=== PATIENT | female | born 1970 | race Caucasian/White ===

== ENCOUNTER → 2016-10-01 | Outpatient (CLI) | payer OTHER ==
[~2016-10-01] MED LIST: LORA-741 PO; NXM/40 PO; PARO1TAB29 PO
[2016-10-01 12:53] LABS: BASO % 0.8 %; BASO ABS # 0.04 K/uL (0-0.2); COMPLETE YES; EOS % 1.7 %; HEMATOCRIT 37.7 % (37-47); IG% 0.2 %; LYMPH % 25.7 %; LYMPH ABS # 1.36 K/uL (1.2-3.4); MEAN CORPUSCULAR HEMOGLOBIN 30.7 pg (25-34); MEAN CORPUSCULAR HGB CONC 32.6 g/dl (32-36); MEAN PLATELET VOLUME 9.9 fL (7.4-10.4); MONO % 17.8 %; NEUT % 53.8 %; PLATELET COUNT 275 K/uL (130-400); RED BLOOD COUNT 4.01 M/uL (4.2-5.4); WHITE BLOOD COUNT 5.29 K/uL (4.8-10.8)
[2016-10-01 13:51] LABS: ALT/SGPT 19 U/L (12-78); AST/SGOT 13 U/L (15-37); BLOOD UREA NITROGEN 15 mg/dl (7-18); BUN/CREATININE RATIO 16.3 (10-20); CARBON DIOXIDE 27 mmol/L (21-32); CHLORIDE 105 mmol/L (98-107); CREATININE 0.95 mg/dl (0.60-1.20); GLUCOSE 80 mg/dl (70-99); POTASSIUM 4.2 mmol/L (3.5-5.1); SODIUM 139 mmol/L (136-145)
[2016-10-01 13:53] LABS: ALB/GLOB RATIO 0.9 (0.9-2); ALKALINE PHOSPHATASE 78 U/L (45-117)
[2016-10-01 13:58] LABS: CHOLESTEROL/HDL RATIO 2.2; THYROID STIMULATING HORMONE 1.82 uIu/ml (0.300-4.500)
== END | disposition home or self-care (01) ==
LOC: C.LABPBG 11:07
PROVIDERS: ATTEND Internal Medicine
DX: F10.10 Alcohol abuse, uncomplicated (principal); K21.9 Gastro-esophageal reflux disease without esophagitis

== ENCOUNTER 2017-10-04 12:03 | Emergency (ER) | payer OTHER ==
[2017-10-04 12:16] VITALS: TEMP 36.6; Ht 157.5 cm
--- NOTE | 2017-10-04 13:44 | EMERGENCY ROOM VISIT NOTE ---
ED Visit Note First contact with patient: 12:54 CHIEF COMPLAINT: Ankle pain HISTORY OF PRESENT ILLNESS: This 47-year-old female patient presents to the emergency department approximately one hour after sustaining an injury to the right ankle and foot with a twisting, inversion motion when she accidentally stepped off of a curb. The patient complains of pain and swelling along the outside of the ankle. She states immediately after the injury, she had to lie down on the road due to nausea and lightheadedness related to the pain. The patient denies pain of the foot. The patient rates the pain as sharp, but minimal at the present time and 2/10. The patient was not able to bear weight on the foot, but she states she believes she may be able to bear weight now. Constant pain, worse with movement, weight bearing, and the dependent position. No knee pain, the patient is able to move their toes. No numbness or weakness of the foot, no laceration. The patient has not had a previous fracture to this ankle. The patient has taken nothing for the pain. The patient denies any other injury. REVIEW OF SYSTEMS: A 6 system review of systems was completed with positives and pertinent negatives listed in the HPI. ALLERGIES: None MEDICATIONS: Paxil, Nexium PMH: None SOCIAL HISTORY: The patient lives locally with family. She denies drug, alcohol , tobacco use. PHYSICAL EXAM: Vital Signs: Reviewed Nurse's notes, vital signs stable. GENERAL : This is a 47-year-old white female, no acute distress, but appears in pain, well-developed, well-nourished. MENTAL STATUS: Alert, oriented to person place and time, and cooperative. MUSCULOSKELETAL: The right ankle is swollen and tender over the lateral malleolus, but the skin is intact and there is no ligamentous instability. There is no fifth metatarsal tenderness. There is no tenderness over the rest of the foot. There is no calf or tibia/fibular tenderness. There is no visual deformity. The foot and toes are warm and well- perfused. Dorsalis pedis pulse 2+. Sensation to pain and light touch is intact. Capillary refill less than 2 seconds. RADIOLOGY: R ANKLE MIN 3 VIEWS ROUTINE HISTORY: 47 years-old Female right ankle pain s/p fall acute right ankle pain status post fall COMPARISON: None available TECHNIQUE: 3 views of the right ankle FINDINGS: There is an acute nondisplaced obliquely oriented fracture of the distal fibula which appears to be present below the level of the tibial plafond. Moderate anterolateral soft tissue swelling with small joint effusion. Distal tibia appears intact. No osteochondral defect of the talar dome. Small enthesophytes are noted about the plantar and Achilles portions of the calcaneus. No additional acute fracture or subluxation. No radiopaque foreign body. IMPRESSION: Acute nondisplaced fracture of the lateral malleolus below the level of the tibial plafond with moderate soft tissue swelling and small joint effusion. The above report was generated using voice recognition software. It may contain grammatical, syntax or spelling errors. Electronically signed by: Hadley Anguiano M.D. 10/04/2017 1:42 PM Dictated Date/Time: 10/04/2017 1:40 PM EMERGENCY DEPARTMENT COURSE: I examined the patient. She presents today complaining of right ankle pain after falling off a curb. She has significant swelling and bruising over the lateral malleolus. X-rays of the right ankle were reviewed by myself and read by radiology and reveal nondisplaced fracture of the lateral malleolus. An Ortho-Glass stirrup splint was applied to the ankle under my direction and the position was satisfactory. The patient was seen by Dr. Harris. Neurovascular status was rechecked and intact. The patient was instructed on the use of crutches. The patient was discharged home in good condition. I attest that I have personally reviewed the patient's current medication list. Patient was found to have normal blood pressure on screening and does not require follow-up. DIFFERENTIAL DIAGNOSIS: Fracture, contusion, sprain, strain, malignancy, and others DIAGNOSIS: distal right fibula fracture Current/Historical Medications Scheduled Esomeprazole Magnesium (Nexium), 40 MG PO DAILY Paroxetine (Paxil), 40 MG PO DAILY Scheduled PRN Lorazepam (Ativan), 0.5 MG PO Q6H PRN for Anxiety/Agitation Oxycodone Ir (Roxicodone Ir), 1-2 TAB PO Q4H PRN for Pain Allergies Coded Allergies: No Known Allergies (Verified , 10/04/17) Vital Signs Date Time Temp Pulse Resp B/P (MAP) Pulse Ox O2 Delivery O2 Flow Rate FiO2 10/04/17 12:16 36.6 70 18 135/91 95 Room Air Departure Information Impression Primary Impression: Fracture of distal end of right fibula Dispostion Home / Self-Care Condition GOOD Prescriptions Oxycodone Ir (Roxicodone Ir) 5 Mg Tab 1-2 TAB PO Q4H Y for Pain, #15 TAB For Initial Treatment Prov: Pennie Steel PA-C 10/04/17 Referrals Rosalio Ritchie M.D. (PCP) Patient Instructions ED Fx Ankle Lateral Malleolus, My [facility] Additional Instructions ORTHOPEDIC INSTRUCTIONS: Oxycodone (OxyIR) 5mg: Take 1-2 pills every four hours as needed for breakthrough pain. Avoid alcohol, operating machinery or dangerous equipment, working on ladders or roofs, DRIVING, or situations where being under the influence may be dangerous. It is recommended to use an [id number] stool softener such as Colace, 100mg twice daily while taking this medication to avoid constipation. Ibuprofen(Motrin, Advil) may be used for fever or pain. Use 600mg every six hours as needed. Take with food. Avoid using more than 2400mg in a 24 hour period. Do not use 2400mg per day for more than three consecutive days without physician direction. Prolonged inappropriate use can lead to stomach upset or ulcers. (AND/OR) Acetaminophen(Tylenol) may be used for fever or pain. Use 1000mg every six hours as needed. Avoid using more than 3000mg in a 24 hour period. Ice compresses for 20 minutes at a time four times daily for 2-3 days. Use the crutches as instructed. Rest and elevate your injury. Do not get the splint wet. If your splint feels excessively tight, you have worsening pain, develop numbness or tingling, or your digits appear blue, loosen the jessica wrap. Then reapply the jessica wrap gently without removing the splint. If your symptoms are not quickly relieved return to the ER for re- evaluation. Return to the ER immediately for any numbness, tingling, severe pain, extreme swelling in the extremity or as needed. Call [facility], [phone], today or Saturday to arrange follow up for your injury. Follow-up with your primary care physician in 2 to 3 days for a recheck of your current condition. Problem Qualifiers Primary Impression: Fracture of distal end of right fibula Encounter type: initial encounter Fracture type: closed Fracture morphology : unspecified fracture morphology Qualified Codes: S82.831A - Other fracture of upper and lower end of right fibula, initial encounter for closed fracture
--- NOTE | 2017-10-04 13:57 | EMERGENCY ROOM VISIT NOTE ---
ED Visit Note First contact with patient: 12:54 I have personally seen and evaluated the patient with the physician assistant manager of operations. I agree with the diagnostic/management decisions and have personally been involved in these decisions and agree with the diagnosis.
[2017-10-04] MEDS ORDERED: OXYC1TAB3 PO (14:00)
[2017-10-04 14:10] VITALS: BP 134/74; PULSE 74; O2SAT 98
== END 2017-10-04 14:10 | disposition home or self-care (01) ==
LOC: C.EDB 12:04 → C.EDD 14:10
DX: S82.831A Other fracture of upper and lower end of right fibula, initial encounter for closed fracture (principal); W10.1XXA Fall (on)(from) sidewalk curb, initial encounter; Z79.899 Other long term (current) drug therapy

== ENCOUNTER → 2017-10-25 | Outpatient (CLI) | payer OTHER ==
[~2017-10-25] MED LIST changes: +OXYC1TAB3 PO
== END | disposition home or self-care (01) ==
LOC: C.LABSPEC 13:37
PROVIDERS: ATTEND Physician Assistant
DX: N94.10 Unspecified dyspareunia (principal)

== ENCOUNTER → 2018-01-08 | Outpatient (CLI) | payer OTHER ==
[~2018-01-08] MED LIST changes: +GADAVIST IV PRN
--- NOTE | 2018-01-08 19:37 | DIAGNOSTIC IMAGING REPORT ---
MRI OF THE BRAIN COMBO INTERNAL AUDITORY CANAL PROTOCOL CLINICAL HISTORY: Hearing loss, right side greater than left. COMPARISON STUDY: MRI of the brain dated 05/08/2011. TECHNIQUE: MRI of the brain was performed utilizing various T1 and T2-weighted sequences in the axial, sagittal, and coronal planes. Contrast-enhanced sequences were acquired following the administration of 8 cc of Gadavist. Additional high-resolution imaging was performed through the skull base both pre and post contrast to assess the internal auditory canals. FINDINGS: Brain parenchyma: There are scattered tiny foci of T2 signal abnormality within the subcortical and periventricular white matter. These are nonspecific and unchanged from 2011, likely representing mild microangiopathic change. The brain parenchyma is otherwise Normal in appearance. There is no hemorrhage or mass effect. There is no restricted diffusion to suggest acute ischemia. No enhancing mass lesion is identified on the postcontrast images. Le-white matter differentiation is preserved. No extra-axial fluid collection is seen. 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 The cerebellar tonsils project approximately 6 mm below the foramen magnum. Ventricles, sulci, and cisterns: Normal in configuration. Asymmetry of the lateral ventricles is unchanged from previous and of doubtful significance. Internal auditory canals: There is no enhancing mass lesion identified in the cerebellopontine angle bilaterally. No mass or abnormal enhancement is seen along the course of the internal auditory canals. The middle ear structures are normal as imaged. Pituitary and sella: Unremarkable. Intracranial vasculature: Normal flow voids are maintained at the skull base. Orbits: The bony orbits are grossly intact. Orbital contents are normal in appearance. Sinuses and mastoids: There is trace mucosal thickening and fluid in the left maxillary antrum. The remaining paranasal sinuses are clear. There our trace mastoid effusions. Calvarium: Unremarkable. Cervical cord: Partially visualized cervical spinal cord is normal in morphology and signal intensity. IMPRESSION: 1. There is no acute intracranial abnormality. 2. Unremarkable MRI assessment of the internal auditory canals. 3. 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 Electronically signed by: Isaac Diaz M.D. 01/08/2018 7:35 PM Dictated Date/Time: 01/08/2018 7:24 PM
== END | disposition home or self-care (01) ==
LOC: C.MRI 17:41
PROVIDERS: ATTEND Physician Assistant
DX: H90.41 Sensorineural hearing loss, unilateral, right ear, with unrestricted hearing on the contralateral side (principal)

== ENCOUNTER → 2018-04-17 | Outpatient (CLI) | payer OTHER ==
[~2018-04-17] MED LIST changes: -GADAVIST IV PRN; -OXYC1TAB3 PO
--- NOTE | 2018-04-17 15:14 | MAMMOGRAPHY REPORT ---
BILATERAL DIGITAL DIAGNOSTIC MAMMOGRAM TOMOSYNTHESIS WITH CAD: 04/17/2018 CLINICAL HISTORY: 12 month follow-up right breast calcifications. Due for routine mammography of the left breast. TECHNIQUE: The study was acquired using full field digital technology and interpreted from soft copy. Breast tomosynthesis in addition to standard 2D mammography was performed. Current study was also ev aluated with a Computer Aided Detection (CAD) system. Bilateral CC and MLO 2D and tomosynthesis imag es and spot magnification right CC and ML views were obtained. COMPARISON: Comparison is made to exams dated: 10/14/2015 mammogram, 01/24/2015 mammogram, 07/23/2014 u ltrasound, 07/23/2014 mammogram, 04/30/2014 mammogram, and 09/17/2014 ultrasound biopsy - [facility]. BREAST COMPOSITION: There are scattered areas of fibroglandular density in both breasts. FINDINGS: Again noted are small groups of faint punctate benign-appearing calcifications in the right superior breast, stable on spot magnification views dating back to at least the July 2014 exam calcificati ons are considered benign given the morphology and long-term stability. The remainder of both breasts are stable compared to prior exams, without suspicious masses, calcific ations, or areas of architectural distortion noted. Mildly prominent right axillary lymph nodes are stable dating back to at least the 2013 exam as well. IMPRESSION: ACR BI-RADS CATEGORY 2: BENIGN Small clusters of punctate benign-appearing calcifications in the right superior breast are stable da ting back to the July 2014 exam and are considered benign given long-term stability. There is no mammographic evidence of malignancy in either breast. A 1 year screening mammogram is recommended.(0 04/18/2019) The patient has been verbally notified of the results. Some breast cancers are not detected with mammography. A negative mammographic report should not carl y biopsy if a clinically suggestive mass is present. Serena Jeffries M.D. /:04/17/2018 14:26:04 Tobacco Sampler: RT Get(R)(M), [facility] letter sent: Normal 1/2 BI-RADS Code: ACR BI-RADS Category 2: Benign
== END | disposition home or self-care (01) ==
LOC: C.MAMM 13:37
PROVIDERS: ATTEND Internal Medicine
DX: R92.1 Mammographic calcification found on diagnostic imaging of breast (principal)